=== PATIENT | male | born 1955 | race African-American/Black ===

== ENCOUNTER 2021-01-11 07:21 | Day surgery (SDC) | payer OTHER, SELFPAY ==
[~2021-01-11] VITALS: Ht 152.4 cm; Wt 106.6 kg
[2021-01-11] MEDS ORDERED: fentaNYL citrate 0.05 MG/ML VIAL ONE (08:54)
[2021-01-11] MEDS ORDERED: MIDAZOLAM 2 MG/2 ML VIAL ONE (08:54)
[2021-01-11] MEDS ORDERED: MIDAZOLAM 5 MG/5 ML VIAL ONE (08:55)
[2021-01-11] MEDS ORDERED: LIDOCAINE 2% 100 MG/5 ML UJET TP ONE ×2 (08:55→09:20)
[2021-01-11] MEDS ORDERED: diphenhydrAMINE 50 MG/ML VIAL ONE (08:55)
[2021-01-11] MEDS ORDERED: MIDAZOLAM 2 MG/2 ML VIAL IVP ONE (09:20)
[2021-01-11] MEDS ORDERED: fentaNYL citrate 0.05 MG/ML VIAL IVP ONE (09:20)
== END 2021-01-11 10:12 | disposition home or self-care (01) ==
LOC: MMU 07:21 → MDS 07:21
PROVIDERS: ATTEND Internal Medicine Gastroenterology
DX: Z12.11 Encounter for screening for malignant neoplasm of colon (principal); K63.5 Polyp of colon; Z79.899 Other long term (current) drug therapy; Z20.822 Contact with and (suspected) exposure to COVID-19
CPT/HCPCS: 45385; 87426; J2250; J3010; J1200